=== PATIENT | male | born 1975 | race Caucasian/White ===

== ENCOUNTER 2016-12-29 04:13 | Emergency (ER) | payer MEDICAID ==
[2016-12-29] MEDS ORDERED: Sodium Chloride 0.9% 10 ML Syringe FLUSH PRN (05:09)
[2016-12-29] MEDS ORDERED: fentaNYL 100 MCG/2 ML SDV IVPUSH ONE (05:15)
[2016-12-29] MEDS ORDERED: Sodium Chloride 0.9% 1,000 ML IV ONE (05:17)
[2016-12-29] MEDS ORDERED: Sodium Chloride 0.9% 80 ML IV SCH (05:30)
[2016-12-29] MEDS ORDERED: Iopamidol 612 MG/ML 150 ML Bottle IV SCH (05:30)
--- NOTE | 2016-12-29 06:31 | EDM.PDOC ---
ED HPI GENERAL MEDICAL PROBLEM - General Chief Complaint: Abdominal Pain Stated Complaint: R ABDOMINAL PAIN Time Seen by Provider: 12/29/16 05:08 Source of Information: Reports: Patient History Limitations: Reports: No Limitations - History of Present Illness INITIAL COMMENTS - FREE TEXT/NARRATIVE: This patient comes in complaining of severe right-sided abdominal pain. 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 He said he immediately got diarrhea and when seen in the local clinic on the he said that he was having watery stool every 20 or 30 minutes. He had stopped the lactulose his last dose being on the morning of the when he cut it in half. He was not having all the abdominal pain at that time. Since then he continues to have diarrhea and says anytime he eats or drinks anything it disorder runs right through him. In the clinic he was asked to continue hydration and then follow-up in the ER if he was not being able to keep up with the liquids. Some basic labs done on the included electrolytes and renal function which was normal. He was also having a cough and a chest x-ray was done which was normal he says the abdominal pain has been going on for the last few days and is sharp stabbing and seems to come and go. These pains come on suddenly started feels like a knife it's in the right side of the abdomen right upper quadrant and then seems to radiate up a little bit into the chest on the right. He said that he takes Voltaren so that he can breathe but when he takes it it causes abdominal pain. He was not very clear about this Right Upper Abdomen Pain Score (Numeric/FACES): 7 - Related Data Allergies Allergy/AdvReac Type Severity Reaction Status Date / Time Penicillins Allergy Severe Anaphylactic Verified 06/30/15 16:58 Shock amoxicillin [Amoxicillin] Allergy Rash Verified 06/29/15 07:52 ampicillin Allergy Rash Verified 06/29/15 07:52 levofloxacin [From Levaquin] Allergy Swelling Verified 06/29/15 07:52 paroxetine HCl [From Paxil] Allergy Depression Verified 06/29/15 07:52 prednisone Allergy Confusion Verified 06/29/15 07:52 Home Meds: Home Meds Albuterol [Ventolin HFA] 2 puff INH Q4H PRN 04/16/13 [History] Diclofenac Sodium [Voltaren XR] 100 mg PO DAILY PRN 06/25/15 [History] Multivitamin [Daily Multiple Vitamin] 1 tab PO DAILY 06/25/15 [History] Omeprazole [Prilosec] 40 mg PO DAILY 06/25/15 [History] Albuterol Sulfate [Proair Hfa] 2 puff INH Q4H 12/29/16 [History] Cholecalciferol (Vitamin D3) [Vitamin D] 500 units PO DAILY 12/29/16 [History] Lactulose 15 gm PO BID 12/29/16 [History] Past Medical History HEENT History: Reports: Allergic Rhinitis, Glaucoma, Impaired Vision Cardiovascular History: Reports: Heart Murmur Respiratory History: Reports: Asthma, Bronchitis, Recurrent, Pneumonia, Recurrent Other Respiratory History: Alpha I deficiency Gastrointestinal History: Reports: GERD, Hemorrhoids, Pancreatitis Musculoskeletal History: Reports: Back Pain, Chronic, Fracture, Neck Pain, Chronic, Osteoporosis Neurological History: Reports: Migraines Psychiatric History: Reports: Depression Endocrine/Metabolic History: Reports: Obesity/BMI 30+ - Infectious Disease History Infectious Disease History: Reports: Chicken Pox - Past Surgical History GI Surgical History: Reports: Cholecystectomy, Colonoscopy, EGD, Hernia, Abdominal Dermatological Surgical History: Reports: Plastic Surgical Reconstruction/Repair Social & Family History - Tobacco Use Smoking Status *Q: Never Smoker Second Hand Smoke Exposure: No - Caffeine Use Caffeine Use: Reports: Coffee - Alcohol Use Days Per Week of Alcohol Use: 0 - Recreational Drug Use Recreational Drug Use: No ED ROS GENERAL - Review of Systems Review Of Systems: See Below Constitutional: Reports: No Symptoms HEENT: Reports: No Symptoms Respiratory: Reports: No Symptoms Cardiovascular: Reports: No Symptoms Endocrine: Reports: No Symptoms GI/Abdominal: Reports: Abdominal Pain, Diarrhea : Reports: No Symptoms Musculoskeletal: Reports: No Symptoms Skin: Reports: No Symptoms Neurological: Reports: No Symptoms ED EXAM, GI/ABD - Physical Exam Exam: See Below (6.7 and for pain but) Exam Limited By: Physical Impairment General Appearance: Alert, WD/WN, Moderate Distress (This patient seems to be having sharp stabbing pains on the right side of the abdomen that come and go.) Eyes: Right: Normal Appearance (No scleral icterus) Throat/Mouth: Normal Oropharynx Head: Atraumatic Neck: Normal Inspection Respiratory/Chest: Lungs Clear Cardiovascular: Regular Rate, Rhythm GI/Abdominal Exam: Soft, Other (Hypoactive bowel sounds. There is generalized mild tenderness but the right side of the abdomen goes from moderate to severe tenderness. I was not able to palpate a liver margin) Back Exam: Normal Inspection Extremities: Normal Inspection Neurological: Alert, Oriented Psychiatric: Normal Affect Skin Exam: Warm, Dry Course - Vital Signs Last Recorded V/S: Last Vital Signs Temp 37 C 12/29/16 06:44 Pulse 93 12/29/16 06:44 Resp 16 12/29/16 06:44 BP 146/86 H 12/29/16 06:44 Pulse Ox 98 12/29/16 06:44 - Orders/Labs/Meds Orders: Active Orders 24 hr Category Date Time Status Abdomen Pelvis w Cont [CT] Stat Exams 12/29/16 05:09 Taken Iopamidol [Isovue-300 (61%)] Med 12/29/16 05:30 Active 150 ml IV . DIRECTED Sodium Chloride 0.9% [Normal Saline] 80 ml Med 12/29/16 05:30 Active IV ASDIRECTED Sodium Chloride 0.9% [Saline Flush] Med 12/29/16 05:09 Active 10 ml FLUSH ASDIRECTED PRN Saline Lock Insert [OM.PC] Urgent Oth 12/29/16 05:09 Ordered Medication Orders Sodium Chloride (Normal Saline) 80 mls @ 3 mls/sec IV ASDIRECTED ANDREE Last Admin: 12/29/16 05:53 Dose: 3 mls/sec Iopamidol (Isovue-300 (61%)) 150 ml IV . DIRECTED ANDREE Last Admin: 12/29/16 05:53 Dose: 150 ml Sodium Chloride (Saline Flush) 10 ml FLUSH ASDIRECTED PRN PRN Reason: Keep Vein Open Last Admin: 12/29/16 05:53 Dose: 10 ml Labs: Laboratory Tests 12/29/16 12/29/16 12/29/16 Range/Units 05:24 05:24 05:24 WBC 9.5 (4.5-11.0) K/uL RBC 4.78 (4.30-5.90) M/uL Hgb 14.4 (12.0-15.0) g/dL Hct 41.9 (40.0-54.0) % MCV 88 (80-98) fL MCH 30 (27-31) pg MCHC 34 (32-36) % Plt Count 260 (150-400) K/uL Neut % (Auto) 58 (36-66) % Lymph % (Auto) 24 (24-44) % Phelps % (Auto) 13 H (2-6) % Eos % (Auto) 4 (2-4) % Baso % (Auto) 1 (0-1) % Sodium 140 (140-148) mmol/L Potassium 3.6 (3.6-5.2) mmol/L Chloride 102 (100-108) mmol/L Carbon Dioxide 28 (21-32) mmol/L Anion Gap 10.1 (5.0-14.0) mmol/L BUN 13 (7-18) mg/dL Creatinine 0.8 (0.8-1.3) mg/dL Est Cr Clr Drug Dosing 130.73 mL/min Estimated GFR (MDRD) > 60 (>60) Glucose 119 H (74-106) mg/dL Calcium 8.4 L (8.5-10.1) mg/dL Total Bilirubin 0.4 (0.2-1.0) mg/dL AST 48 H (15-37) U/L ALT 117 H (12-78) U/L Alkaline Phosphatase 77 (46-116) U/L Total Protein 7.4 (6.4-8.2) g/dL Albumin 4.1 (3.4-5.0) g/dL Globulin 3.3 (2.3-3.5) g/dL Albumin/Globulin Ratio 1.2 (1.2-2.2) Amylase 54 (25-115) U/L Lipase 84 (73-393) U/L Meds: Medications Generic Name Dose Route Start Last Admin Trade Name Freq PRN Reason Stop Dose Admin Sodium Chloride 80 mls @ 3 mls/sec 12/29/16 05:30 12/29/16 05:53 Normal Saline IV 3 mls/sec ASDIRECTED ANDREE Administration Iopamidol 150 ml 12/29/16 05:30 12/29/16 05:53 Isovue-300 (61%) IV 150 ml . DIRECTED ANDREE Administration Sodium Chloride 10 ml 12/29/16 05:09 12/29/16 05:53 Saline Flush FLUSH 10 ml ASDIRECTED PRN Administration Keep Vein Open Discontinued Medications Generic Name Dose Route Start Last Admin Trade Name Tiffanie PRN Reason Stop Dose Admin Fentanyl 50 mcg 12/29/16 05:15 12/29/16 05:40 Sublimaze IVPUSH 12/29/16 05:16 50 mcg ONETIME ONE Administration Sodium Chloride 1,000 mls @ 999 mls/hr 12/29/16 05:17 12/29/16 05:30 Normal Saline IV 12/29/16 06:17 999 mls/hr .BOLUS ONE Administration - Radiology Interpretation Free Text/Narrative:: Abdominal CT appears to show a short segment of bowel wall thickening in the terminal ileum however this believed to be pseudo-thickening due to nondistention since there was no. Interim inflammation. There were a few reactive appearing lymph nodes in the right lower quadrant. I reviewed the CT myself. The radiologist did not mention that he has a large amount of stool in the ascending and transverse colon. Recall of this patient is having diarrhea - Re-Assessments/Exams Free Text/Narrative Re-Assessment/Exam: 12/29/16 06:34 The patient received fentanyl 50 g IV. He said that only partially relieved his pain did not want anymore. He has not had any nausea. Labs have been reviewed and show just some mild elevation in transaminases. I reviewed the CT and I do see a lot of stool in the ascending and transverse colon despite his history of diarrhea. Radiology report is pending Departure - Departure Time of Disposition: 07:16 Disposition: Home, Self-Care 01 Condition: Fair Clinical Impression: Steatohepatitis, non-alcoholic, Abdominal pain, Diarrhea - Discharge Information Referrals: Jae Rosales MD [Primary Care Provider] - Forms: ED Department Discharge Additional Instructions: Your blood work is all normal. The CT report mentioned possibly some inflammation to the end of the small intestine but that's probably just because the intestine wasn't distended so most likely it's actually normal. I reviewed the CT myself and see that you have a lot of stool in the colon on the right at the beginning of the colon and this extends all the way up across her upper abdomen. The part of the colon on the left side which is towards the anal end appears to be mostly empty. Most likely the pain is caused by contractions of the colon as it tries to force the hard stool towards the rectum. You need to continue taking the lactulose even if it's a half dose. The lactulose needs to cause diarrhea in order to work to rid your blood of the poisons that the liver would normally remove. Just be sure to drink plenty of water to replace the water lost in the diarrhea fluid. Feel free to return to the ER at any time if needed - My Orders Last 24 Hours: My Active Orders 12/29/16 05:09 Abdomen Pelvis w Cont [CT] Stat Sodium Chloride 0.9% [Saline Flush] 10 ml FLUSH ASDIRECTED PRN Saline Lock Insert [OM.PC] Urgent 12/29/16 05:30 Iopamidol [Isovue-300 (61%)] 150 ml IV . DIRECTED Sodium Chloride 0.9% [Normal Saline] 80 ml IV ASDIRECTED - Assessment/Plan Last 24 Hours: My Active Orders 12/29/16 05:09 Abdomen Pelvis w Cont [CT] Stat Sodium Chloride 0.9% [Saline Flush] 10 ml FLUSH ASDIRECTED PRN Saline Lock Insert [OM.PC] Urgent 12/29/16 05:30 Iopamidol [Isovue-300 (61%)] 150 ml IV . DIRECTED Sodium Chloride 0.9% [Normal Saline] 80 ml IV ASDIRECTED
[2016-12-29 06:45] VITALS: BP 146/86
== END 2016-12-29 07:48 | disposition home or self-care (01) ==
LOC: JP.ED 04:13
DX: K75.81 Nonalcoholic steatohepatitis (NASH) (principal); R19.7 Diarrhea, unspecified; K21.9 Gastro-esophageal reflux disease without esophagitis; J45.909 Unspecified asthma, uncomplicated; E66.9 Obesity, unspecified; Z68.30 Body mass index [BMI] 30.0-30.9, adult; Z88.1 Allergy status to other antibiotic agents; Z88.0 Allergy status to penicillin; Z88.8 Allergy status to other drugs, medicaments and biological substances; Z79.899 Other long term (current) drug therapy; Z90.49 Acquired absence of other specified parts of digestive tract; Z87.01 Personal history of pneumonia (recurrent)
CPT/HCPCS: 36415; 74177; 80053; 82150; 83690; 85025; 96361; 96374; 99284; J3010; J7030; J7040; J7050

== ENCOUNTER 2018-06-07 07:15 | Day surgery (SDC) | payer MEDICAID ==
[~2018-06-07 07:15] MED LIST: Bupivacaine 0.5%/EPINEPHrine 1:200,000 50 ML MDV ONE; Lidocaine 2% Jelly 10 ML Urojet ONE
[2018-06-07] MEDS ORDERED: fentaNYL 250 MCG/5 ML SDV ONE (07:55)
[2018-06-07] MEDS ORDERED: Propofol 200 MG/20 ML SDV ONE (07:56)
[2018-06-07] MEDS ORDERED: Midazolam 1 MG/ML 2 ML SDV ONE (07:56)
[2018-06-07] MEDS ORDERED: Albuterol/Ipratropium 3.0-0.5 MG/3 ML Neb Soln NEB ONE (08:15)
[2018-06-07] MEDS ORDERED: Dextrose 5%-Lactated Ringers 1,000 ML IV SCH (08:15)
[2018-06-07 10:45] VITALS: BP 133/78
--- NOTE | 2018-06-13 22:22 | OR ---
DATE OF PROCEDURE: 06/07/2018 PREOPERATIVE DIAGNOSIS: Rectal bleeding. POSTOPERATIVE DIAGNOSIS: Rectal bleeding secondary to internal hemorrhoids. PROCEDURE PERFORMED: Diagnostic anoscopy with hemorrhoid banding x2 (10391). ANESTHESIA: IV sedation. INDICATIONS FOR PROCEDURE: This is a 43-year-old presenting with some bleeding hemorrhoids by history. Plan was to proceed with an anoscopic examination with some IV sedation along with hemorrhoid banding as indicated. Potential risks of the procedure including bleeding, postoperative pain, possibility that he may need additional treatment over time for the bleeding was reviewed, and the patient wishes to proceed. DETAILS OF PROCEDURE: The patient was taken to the operating room and placed in the left lateral decubitus position. The initial digital rectal exam was performed and was unremarkable. The anoscope was then placed. There were 2 prominent hemorrhoids; one of these did have some blood on its surface. One was located in the right lateral area, and then one was more posterior and slightly to the left of the midline. It did have some blood on its surface. Both of these were fairly engorged and were banded with hemorrhoids located in position above the dentate line. No further pathology was seen and the procedure concluded. CONDITION: The patient was taken to the recovery room in satisfactory condition. Matt Padgett MD /[id number]
== END 2018-06-07 11:00 | disposition home or self-care (01) ==
LOC: JP.SDS 07:15
PROVIDERS: ATTEND Surgery
DX: K64.8 Other hemorrhoids (principal); K74.60 Unspecified cirrhosis of liver; F32.9 Major depressive disorder, single episode, unspecified; F17.200 Nicotine dependence, unspecified, uncomplicated
CPT/HCPCS: 46221; J2250; J2704; J3010; J7042; J3490; J7620-GY

== ENCOUNTER 2018-06-22 19:52 | Emergency (ER) | payer MEDICAID ==
[2018-06-22 20:24] VITALS: BP 159/88
--- NOTE | 2018-06-22 20:55 | EDM.PDOC ---
ED HPI GENERAL MEDICAL PROBLEM - General Chief Complaint: ENT Problem Stated Complaint: LEFT EAR PAIN Time Seen by Provider: 06/22/18 20:47 Source of Information: Reports: Patient History Limitations: Reports: No Limitations - History of Present Illness INITIAL COMMENTS - FREE TEXT/NARRATIVE: pt had some muffled hearing and now he has pain over the tmj joint. He also thought he heard a high pitched sound. That ia better. He states this started suddenly. Onset: Today, Sudden Duration: Hour(s): Location: Reports: Face Associated Symptoms: Reports: No Other Symptoms - Related Data Allergies Allergy/AdvReac Type Severity Reaction Status Date / Time Penicillins Allergy Severe Anaphylactic Verified 06/22/18 20:17 Shock amoxicillin [Amoxicillin] Allergy Rash Verified 06/22/18 20:17 ampicillin Allergy Rash Verified 06/22/18 20:17 coconut Allergy Facial Verified 06/22/18 20:17 Swelling lactose Allergy Other Verified 06/22/18 20:17 levofloxacin [From Levaquin] Allergy Swelling Verified 06/22/18 20:17 paroxetine HCl [From Paxil] Allergy Depression Verified 06/22/18 20:17 prednisone Allergy Confusion Verified 06/22/18 20:17 sucrose Allergy Other Verified 06/22/18 20:17 Home Meds: Home Meds Albuterol Sulfate [Proair Hfa] 2 puff INH Q4H 12/29/16 [History] Cholecalciferol (Vitamin D3) [Vitamin D3] 1 tab PO TID 03/13/18 [History] Dextroamphetamine/Amphetamine [Dextroamp-Amphetamine 5 mg Tab] 1 tab PO DAILY [History] LORazepam 1 mg PO ASDIRECTED PRN 03/13/18 [History] Albuterol [Ventolin HFA] 2 puff INH Q4HR PRN 06/05/18 [History] #92/Iron/FA #8/Ps-Dha [Enbrace Hr Softgel] 1 tab PO DAILY 06/05/18 [ History] Past Medical History HEENT History: Reports: Allergic Rhinitis, Glaucoma, Impaired Vision Cardiovascular History: Reports: Heart Murmur Respiratory History: Reports: Asthma, Bronchitis, Recurrent, Pneumonia, Recurrent Other Respiratory History: Alpha I deficiency Gastrointestinal History: Reports: GERD, Hemorrhoids, Pancreatitis Musculoskeletal History: Reports: Back Pain, Chronic, Fracture, Neck Pain, Chronic, Osteoporosis Neurological History: Reports: Migraines Psychiatric History: Reports: ADHD, Anxiety, Depression, Psych Hospitalization(s ), Suicidal Ideation Endocrine/Metabolic History: Reports: Obesity/BMI 30+ - Infectious Disease History Infectious Disease History: Reports: Chicken Pox - Past Surgical History GI Surgical History: Reports: Cholecystectomy, Colonoscopy, EGD, Hernia, Abdominal Dermatological Surgical History: Reports: Plastic Surgical Reconstruction/Repair , Other (See Below) Social & Family History - Tobacco Use Smoking Status *Q: Never Smoker - Caffeine Use Caffeine Use: Reports: Coffee ED ROS ENT - Review of Systems Review Of Systems: See Below Constitutional: Reports: No Symptoms HEENT: Reports: Other (pain in the left ear and muffled hearing. He is very tender over the tmj area. ) Respiratory: Reports: No Symptoms Cardiovascular: Reports: No Symptoms Endocrine: Reports: No Symptoms GI/Abdominal: Reports: No Symptoms : Reports: No Symptoms ED EXAM, ENT - Physical Exam Exam: See Below Text/Narrative:: pt arrived with a muffed hearing in the left ear. He had pain in front of the ear. He did have a high pitched sound in the ear. He now feels the hearing is normal. Exam Limited By: No Limitations General Appearance: Alert, Anxious, Mild Distress Ears: Other ( both drums do not look red and no visable fluid. He is very tender over the tmj joint on the left but not the rt. ) Nose: Normal Inspection Mouth/Throat: Normal Inspection Head: Atraumatic Neck: Normal Inspection Respiratory/Chest: No Respiratory Distress Cardiovascular: Regular Rate, Rhythm Course - Vital Signs Last Recorded V/S: Last Vital Signs Temp 36.9 C 06/22/18 20:22 Pulse 91 06/22/18 20:22 Resp 14 06/22/18 20:22 BP 159/88 H 06/22/18 20:22 Pulse Ox 98 06/22/18 20:22 Departure - Departure Time of Disposition: 20:51 Disposition: Home, Self-Care 01 Condition: Fair Clinical Impression: TMJ arthralgia - Discharge Information Referrals: Jae Rosales MD [Primary Care Provider] - Forms: ED Department Discharge Care Plan Goals: moist warm packs to the area, use voltaren 50 mg bid for the next 5-6 days. Take with food. Pt has the voltaren at home.
== END 2018-06-22 21:14 | disposition home or self-care (01) ==
LOC: JP.ED 19:52
DX: M26.622 Arthralgia of left temporomandibular joint (principal); K21.9 Gastro-esophageal reflux disease without esophagitis; F41.9 Anxiety disorder, unspecified; F32.9 Major depressive disorder, single episode, unspecified; Z79.899 Other long term (current) drug therapy; Z88.0 Allergy status to penicillin; Z88.1 Allergy status to other antibiotic agents; Z91.018 Allergy to other foods
CPT/HCPCS: 99282

== ENCOUNTER 2019-06-26 11:07 | Emergency (ER) | payer MEDICAID, OTHER ==
[2019-06-26] MEDS ORDERED: Albuterol/Ipratropium 3.0-0.5 MG/3 ML Neb Soln NEB ONE (11:39)
--- NOTE | 2019-06-26 11:40 | EDM.PDOC ---
ED HPI GENERAL MEDICAL PROBLEM - General Chief Complaint: Respiratory Problem Stated Complaint: SOB, COUGH, FEVER Time Seen by Provider: 06/26/19 11:40 Source of Information: Reports: Patient History Limitations: Reports: No Limitations - History of Present Illness INITIAL COMMENTS - FREE TEXT/NARRATIVE: pt has a history of increased sob and a very persistent cough. He has a history of alpha 1 antitripsin def. Onset: Gradual, Other ( Pt has had a problm with a cough for about 3 weeks. He has recently been spiking a fever. ) Duration: Hour(s): Location: Reports: Chest Associated Symptoms: Reports: Cough, Diaphoresis, Fever/Chills, Shortness of Breath, Weakness - Related Data Allergies Allergy/AdvReac Type Severity Reaction Status Date / Time Penicillins Allergy Severe Anaphylactic Verified 06/22/18 20:17 Shock amoxicillin [Amoxicillin] Allergy Rash Verified 06/22/18 20:17 ampicillin Allergy Rash Verified 06/22/18 20:17 coconut Allergy Facial Verified 06/22/18 20:17 Swelling lactose Allergy Other Verified 06/22/18 20:17 levofloxacin [From Levaquin] Allergy Swelling Verified 06/22/18 20:17 paroxetine HCl [From Paxil] Allergy Depression Verified 06/22/18 20:17 prednisone Allergy Confusion Verified 06/22/18 20:17 sucrose Allergy Other Verified 06/22/18 20:17 Home Meds: Home Meds Albuterol Sulfate [Proair Hfa] 2 puff INH Q4H 12/29/16 [History] Cholecalciferol (Vitamin D3) [Vitamin D3] 1 tab PO TID 03/13/18 [History] Dextroamphetamine/Amphetamine [Dextroamp-Amphetamine 5 mg Tab] 1 tab PO DAILY [History] LORazepam 1 mg PO ASDIRECTED PRN 03/13/18 [History] Albuterol [Ventolin HFA] 2 puff INH Q4HR PRN 06/05/18 [History] #92/Iron/FA #8/Ps-Dha [Enbrace Hr Softgel] 1 tab PO DAILY 06/05/18 [ History] Past Medical History HEENT History: Reports: Allergic Rhinitis, Glaucoma, Impaired Vision Cardiovascular History: Reports: Heart Murmur Respiratory History: Reports: Asthma, Bronchitis, Recurrent, Pneumonia, Recurrent Other Respiratory History: Alpha I deficiency Gastrointestinal History: Reports: GERD, Hemorrhoids, Pancreatitis Musculoskeletal History: Reports: Back Pain, Chronic, Fracture, Neck Pain, Chronic, Osteoporosis Neurological History: Reports: Migraines Psychiatric History: Reports: ADHD, Anxiety, Depression, Psych Hospitalization(s ), Suicidal Ideation Endocrine/Metabolic History: Reports: Obesity/BMI 30+ - Infectious Disease History Infectious Disease History: Reports: Chicken Pox - Past Surgical History GI Surgical History: Reports: Cholecystectomy, Colonoscopy, EGD, Hernia, Abdominal Dermatological Surgical History: Reports: Plastic Surgical Reconstruction/Repair , Other (See Below) Social & Family History - Caffeine Use Caffeine Use: Reports: Coffee ED ROS GENERAL - Review of Systems Review Of Systems: See Below Constitutional: Reports: Fever, Chills, Malaise, Weakness HEENT: Reports: No Symptoms Respiratory: Reports: Shortness of Breath, Cough Cardiovascular: Reports: No Symptoms Endocrine: Reports: No Symptoms GI/Abdominal: Reports: No Symptoms : Reports: No Symptoms Musculoskeletal: Reports: No Symptoms Skin: Reports: No Symptoms Neurological: Reports: No Symptoms ED EXAM, GENERAL - Physical Exam Exam: See Below Free Text/Narrative:: pt arrived stating that he is not resting at nite because he is coughing continuously . He has good o2 sats. He did have a febrile illness about 3 weeks ago and now he is running a fever off and on. He has a history of asthma. He states that steroids make his bs run very hiogh and he does not like to take them. He has a history of alpha 1 antitripsen def. Exam Limited By: No Limitations General Appearance: Alert, Anxious, Mild Distress Ears: Normal TMs Nose: Normal Inspection Throat/Mouth: Normal Inspection Head: Atraumatic Neck: Normal Inspection Respiratory/Chest: Decreased Breath Sounds, Wheezing Cardiovascular: Regular Rate, Rhythm GI/Abdominal: Soft, Non-Tender (Male) Exam: Deferred Rectal (Males) Exam: Deferred Back Exam: Normal Inspection Extremities: Normal Inspection Neurological: Alert, Oriented, Normal Cognition Psychiatric: Normal Affect Course - Vital Signs Last Recorded V/S: Last Vital Signs Temp 36.8 C 06/26/19 11:26 Pulse 75 06/26/19 11:26 Resp 18 06/26/19 11:26 BP 141/103 H 06/26/19 11:26 Pulse Ox 97 06/26/19 11:26 - Orders/Labs/Meds Orders: Active Orders 24 hr Category Date Time Status RT Aerosol Therapy [RC] ASDIRECTED Care 06/26/19 11:40 Active RT Aerosol Therapy [RC] ASDIRECTED Care 06/26/19 13:16 Ordered INFLUENZA A+B AG SCREEN [RM] Stat Lab 06/26/19 12:33 Ordered RESPIRATORY SYNCYTIAL VIRUS AG [RM] Stat Lab 06/26/19 12:33 Ordered UA W/MICROSCOPIC [URIN] Urgent Lab 06/26/19 11:30 Ordered Albuterol [Proventil Neb Soln] Med 06/26/19 13:16 Once 2.5 mg NEB ONETIME ONE Isolation [COMM] Routine Oth 06/26/19 12:07 Ordered Isolation [COMM] Routine Oth 06/26/19 12:08 Ordered Medication Orders Albuterol (Proventil Neb Soln) 2.5 mg NEB ONETIME ONE Stop: 06/26/19 13:17 Labs: Laboratory Tests 06/26/19 06/26/19 06/26/19 Range/Units 11:44 11:44 12:01 WBC 9.9 (4.5-11.0) K/uL RBC 5.43 (4.30-5.90) M/uL Hgb 16.3 H (12.0-15.0) g/dL Hct 48.3 (40.0-54.0) % MCV 89 (80-98) fL MCH 30 (27-31) pg MCHC 34 (32-36) % Plt Count 316 (150-400) K/uL Neut % (Auto) 51 (36-66) % Lymph % (Auto) 28 (24-44) % [place] % (Auto) 14 H (2-6) % Eos % (Auto) 6 H (2-4) % Baso % (Auto) 1 (0-1) % Sodium 140 (140-148) mmol/L Potassium 4.1 (3.6-5.2) mmol/L Chloride 104 (100-108) mmol/L Carbon Dioxide 30 (21-32) mmol/L Anion Gap 6.4 (5.0-14.0) mmol/L BUN 11 (7-18) mg/dL Creatinine 0.9 (0.8-1.3) mg/dL Est Cr Clr Drug Dosing TNP Estimated GFR (MDRD) > 60 (>60) Glucose 140 H (74-106) mg/dL Calcium 9.1 (8.5-10.1) mg/dL Total Bilirubin 0.4 (0.2-1.0) mg/dL AST 58 H (15-37) U/L ALT 140 H (12-78) U/L Alkaline Phosphatase 79 (46-116) U/L C-Reactive Protein < 0.05 (0.0-0.3) mg/dL Total Protein 7.7 (6.4-8.2) g/dL Albumin 4.1 (3.4-5.0) g/dL Globulin 3.6 H (2.3-3.5) g/dL Albumin/Globulin Ratio 1.1 L (1.2-2.2) Meds: Medications Generic Name Dose Route Start Last Admin Trade Name Freq PRN Reason Stop Dose Admin Albuterol 2.5 mg 06/26/19 13:16 Proventil Neb Soln NEB 06/26/19 13:17 ONETIME ONE Discontinued Medications Generic Name Dose Route Start Last Admin Trade Name Freq PRN Reason Stop Dose Admin Albuterol/Ipratropium 3 ml 06/26/19 11:39 06/26/19 11:59 Duoneb 3.0-0.5 Mg/3 Ml NEB 06/26/19 11:40 3 ml ONETIME ONE Administration Triamcinolone Acetonide 60 mg 06/26/19 12:16 06/26/19 12:41 Kenalog-40 IM 06/26/19 12:17 Not Given ASDIRECTED ONE - Re-Assessments/Exams Free Text/Narrative Re-Assessment/Exam: 06/26/19 13:24 pt was given a duoneb which was very effective in getting the cough to stop. He was given a second albuterol neb. He has a normal wbc without a lymphcytosis. He does have mildly elevated liver enzymes. pt has a neg influ a and b and rsv. His chest xray does not reveal a infiltrate. Pt has good o2 sats. 06/26/19 13:26 Departure - Departure Time of Disposition: 13:28 Disposition: Home, Self-Care 01 Condition: Fair Clinical Impression: Bronchitis, Bronchospasm - Discharge Information Referrals: Jae Rosales MD [Primary Care Provider] - Forms: ED Department Discharge Care Plan Goals: push fluids, increase nebulizer treatments to every 6 hours. , push fluids, cool mist humidifier, zithromax 500mg now and then 250 mg daily for 6 days, robitussin ac 1-2 tsp q6h prn for the cough. rtc if problems. Sepsis Event Note - Focused Exam Vital Signs: Vital Signs Temp Pulse Resp BP Pulse Ox 06/26/19 11:26 36.8 C 75 18 141/103 H 97 Date Exam was Performed: 06/26/19 Time Exam was Performed: 13:17 - My Orders Last 24 Hours: My Active Orders 06/26/19 11:30 UA W/MICROSCOPIC [URIN] Urgent 06/26/19 11:40 RT Aerosol Therapy [RC] ASDIRECTED 06/26/19 12:07 Isolation [COMM] Routine 06/26/19 12:08 Isolation [COMM] Routine 06/26/19 12:33 INFLUENZA A+B AG SCREEN [RM] Stat RESPIRATORY SYNCYTIAL VIRUS AG [RM] Stat 06/26/19 13:16 RT Aerosol Therapy [RC] ASDIRECTED Albuterol [Proventil Neb Soln] 2.5 mg NEB ONETIME ONE - Assessment/Plan Last 24 Hours: My Active Orders 06/26/19 11:30 UA W/MICROSCOPIC [URIN] Urgent 06/26/19 11:40 RT Aerosol Therapy [RC] ASDIRECTED 06/26/19 12:07 Isolation [COMM] Routine 06/26/19 12:08 Isolation [COMM] Routine 06/26/19 12:33 INFLUENZA A+B AG SCREEN [RM] Stat RESPIRATORY SYNCYTIAL VIRUS AG [RM] Stat 06/26/19 13:16 RT Aerosol Therapy [RC] ASDIRECTED Albuterol [Proventil Neb Soln] 2.5 mg NEB ONETIME ONE
[2019-06-26 12:11] VITALS: BP 141/103; PULSE 75
[2019-06-26] MEDS ORDERED: Triamcinolone Acetonide 40 MG/ML 1 ML MDV IM ONE (12:16)
--- NOTE | 2019-06-26 12:35 | CR ---
CHEST: 2 view CLINICAL HISTORY:SOB, cough COMPARISON:2009 FINDINGS: There is some minimal patchy density in the lingula. Heart size, pulmonary vascularity and hilar structures are normal. No effusions are seen Impression: Minimal patchy lingular density. Small pneumonia is not excluded.
[2019-06-26] MEDS ORDERED: Albuterol 0.083% 2.5 MG/3 ML Neb Soln NEB ONE (13:16)
== END 2019-06-26 13:52 | disposition home or self-care (01) ==
LOC: JP.ED 11:07
DX: J40 Bronchitis, not specified as acute or chronic (principal); Z88.8 Allergy status to other drugs, medicaments and biological substances; E66.9 Obesity, unspecified; Z68.33 Body mass index [BMI] 33.0-33.9, adult; Z88.0 Allergy status to penicillin; Z88.1 Allergy status to other antibiotic agents; Z91.018 Allergy to other foods
CPT/HCPCS: 36415; 71046; 71046-26; 80053; 81001; 85025; 86140; 87804; 87804-59; 87807-QW; 94640; 99285-25; J7620-GY

== ENCOUNTER 2022-03-04 16:31 | Emergency (ER) | payer MEDICAID ==
[2022-03-04 16:45] VITALS: BP 161/91; PULSE 106
[2022-03-04 17:44] LABS: ESTIMATED GFR 111 mL/min (>60); TROPONIN I HIGH SENSITIVITY 4.5 pg/mL (<=60.3)
== END 2022-03-04 18:31 | disposition home or self-care (01) ==
LOC: JP.ED 16:31
DX: I49.3 Ventricular premature depolarization (principal); J45.909 Unspecified asthma, uncomplicated; E66.9 Obesity, unspecified; Z68.31 Body mass index [BMI] 31.0-31.9, adult; Z88.0 Allergy status to penicillin; Z91.018 Allergy to other foods; Z91.011 Allergy to milk products; Z88.1 Allergy status to other antibiotic agents; Z79.899 Other long term (current) drug therapy; Z79.84 Long term (current) use of oral hypoglycemic drugs; Z90.49 Acquired absence of other specified parts of digestive tract
CPT/HCPCS: 36415; 80053; 83735; 84100; 84484; 85025; 99285

== ENCOUNTER 2024-06-05 15:49 | Observation (INO) | payer MEDICAID, OTHER ==
[2024-06-05 16:19] LABS: BASOPHILS ABSOLUTE AUTO 0.04 K/uL (0.00-0.10); BASOPHILS PERCENT AUTO 0.2 % (0.1-1.3); EOSINOPHILS ABSOLUTE AUTO 0.44 K/uL (0.00-0.40); EOSINOPHILS PERCENT AUTO 2.7 % (0.0-5.4); HEMATOCRIT 43.7 % (38.4-49.7); HEMOGLOBIN 15.7 g/dL (12.9-16.9); IMMATURE GRAN ABSOLUTE AUTO 0.05 K/uL (0.00-0.23); IMMATURE GRAN PERCENT AUTO 0.3 % (0.0-0.7); LYMPHOCYTES ABSOLUTE AUTO 3.06 K/uL (0.8-3.3); LYMPHOCYTES PERCENT AUTO 18.4 % (11.4-47.7); MEAN CORPUSCULAR HEMOGLOBIN 32.4 pg (31.6-35.5); MEAN CORPUSCULAR HGB CONC 35.9 g/dL (31.6-35.5); MEAN CORPUSCULAR VOLUME 90.3 fL (81.4-99.0); MONOCYTES PERCENT AUTO 10.2 % (3.3-12.6); NEUTROPHILS ABSOLUTE AUTO 11.31 K/uL (1.0-7.6); NEUTROPHILS PERCENT AUTO 68.2 % (40.0-78.1); PLATELET COUNT,PLT 260 K/uL (130-375); RED BLOOD CELL COUNT 4.84 M/uL (4.14-5.76); WHITE BLOOD CELL COUNT,WBC 16.6 K/uL (3.2-11.0)
[2024-06-05 16:44] LABS: LACTIC ACID 0.6 mmol/L (0.4-2.0)
[2024-06-05] MEDS: Sodium Chloride 0.9% 80 ML IV SCH (17:05)
[2024-06-05] MEDS: Iopamidol 612 MG/ML 100 ML Bottle IV SCH (17:05)
[2024-06-05 17:07] LABS: A/G RATIO 1.3 (1.2-2.2); ALANINE AMINOTRANSFERASE,ALT 116 U/L (12-78); ALBUMIN 4.5 g/dL (3.4-5.0); ALKALINE PHOSPHATASE 78 U/L (46-116); ASPARTATE AMNIOTRANSFERASE,AST 50 U/L (15-37); BILIRUBIN TOTAL 0.7 mg/dL (0.2-1.0); BLOOD UREA NITROGEN,BUN 17 mg/dL (7-18); C-REACTIVE PROTEIN 0.51 mg/dL (<0.50); CALCIUM 9.2 mg/dL (8.5-10.1); CARBON DIOXIDE,CO2 26 mmol/L (21-32); CHLORIDE,CL 102 mmol/L (100-108); CREATININE 0.8 mg/dL (0.8-1.3); EST CRCL DRUG DOSING (CG) 120.27 mL/min; ESTIMATED GFR 109 mL/min (>60); GLUCOSE RANDOM 101 mg/dL (74-106); POTASSIUM,K 3.7 mmol/L (3.6-5.2); PROTEIN TOTAL,TP 7.9 g/dL (6.4-8.2); SODIUM,NA 137 mmol/L (140-148)
[2024-06-05 17:08] LABS: ANION GAP 12.7 mmol/L (5.0-14.0)
[2024-06-05] MEDS: Sodium Chloride 0.9% 1,000 ML IV STA (17:30)
[2024-06-05] MEDS: Ertapenem 1 GM in Sodium Chloride 0.9% 50 ML IV SCH (18:11)
[2024-06-05 18:52] LABS: APPEARANCE,URINE CLEAR (CLEAR); BILIRUBIN,URINE NEGATIVE (NEGATIVE); COLOR,URINE YELLOW (YELLOW); GLUCOSE,URINE NEGATIVE (NEGATIVE); KETONES,URINE TRACE mg/dL (NEGATIVE); LEUKOCYTE ESTERASE,URINE NEGATIVE (NEGATIVE); NITRITE,URINE NEGATIVE (NEGATIVE); OCCULT BLOOD,URINE NEGATIVE (NEGATIVE); PH,URINE 6.5 (5.0-8.0); PROTEIN,URINE NEGATIVE (NEGATIVE); UROBILINOGEN,URINE 0.2 EU/dL (0.2-1.0)
[2024-06-05] MEDS ORDERED: LORazepam 2 MG/ML SDV IVPUSH PRN (19:49)
[2024-06-05] MEDS ORDERED: Ondansetron 4 MG Tab.DIS PO PRN (19:49)
[2024-06-05] MEDS ORDERED: HYDROmorphone 1 MG/ML Syringe IVPUSH PRN (19:49)
[2024-06-05] MEDS ORDERED: Sennosides/Docusate Sodium 50-8.6 MG Tab PO PRN (19:49)
[2024-06-05] MEDS ORDERED: Magnesium Hydroxide 400 MG/5 ML Susp 30 ML Cup PO PRN (19:49)
[2024-06-05] MEDS ORDERED: Melatonin 3 MG Tab PO PRN (19:49)
[2024-06-05] MEDS ORDERED: Albuterol 0.083% 2.5 MG/3 ML Neb Soln NEB PRN (19:49)
[2024-06-05] MEDS ORDERED: Ondansetron 4 MG/2 ML SDV IV PRN (19:49)
[2024-06-05] MEDS ORDERED: HYDROmorphone 0.5 MG/0.5 ML Syringe IVPUSH PRN (19:58)
[2024-06-05] MEDS: Sodium Chloride 0.9% 1,000 ML IV SCH (23:14)
[2024-06-06 05:59] LABS: HEMATOCRIT 41.1 % (38.4-49.7); HEMOGLOBIN 14.6 g/dL (12.9-16.9); MEAN CORPUSCULAR HEMOGLOBIN 32.5 pg (31.6-35.5); MEAN CORPUSCULAR HGB CONC 35.5 g/dL (31.6-35.5); MEAN CORPUSCULAR VOLUME 91.5 fL (81.4-99.0); RED BLOOD CELL COUNT 4.49 M/uL (4.14-5.76); WHITE BLOOD CELL COUNT,WBC 8.3 K/uL (3.2-11.0)
[2024-06-06 06:12] LABS: CALCIUM 8.4 mg/dL (8.5-10.1); CREATININE 0.7 mg/dL (0.8-1.3); EST CRCL DRUG DOSING (CG) 137.45 mL/min; POTASSIUM,K 3.9 mmol/L (3.6-5.2)
[2024-06-06 06:20] LABS: ANION GAP 9.9 mmol/L (5.0-14.0)
[2024-06-06] MEDS ORDERED: Propofol 200 MG/20 ML SDV ONE (07:13)
[2024-06-06] MEDS ORDERED: Glycopyrrolate 0.2 MG/ML 5 ML MDV ONE (07:13)
[2024-06-06] MEDS ORDERED: fentaNYL 250 MCG/5 ML SDV ONE ×2 (07:13→11:45)
[2024-06-06] MEDS ORDERED: Rocuronium 50 MG/5 ML Vial ONE (07:13)
[2024-06-06] MEDS ORDERED: Succinylcholine 200 MG/10 ML MDV ONE (07:13)
[2024-06-06] MEDS ORDERED: Ondansetron 4 MG/2 ML SDV ONE (07:13)
[2024-06-06] MEDS ORDERED: Dexamethasone 4 MG/ML SDV ONE (07:13)
[2024-06-06] MEDS ORDERED: Neostigmine Methylsulfate 10 MG/10 ML MDV ONE (07:13)
[2024-06-06] MEDS ORDERED: Docusate Sodium 100 MG Cap PO PRN (08:35)
[2024-06-06] MEDS ORDERED: Benzocaine/Cetylpyridinium/Menthol Lozenge MUCMEM PRN (08:35)
[2024-06-06] MEDS ORDERED: Acetaminophen/HYDROcodone 325-5 MG Tab PO PRN (08:35)
[2024-06-06] MEDS ORDERED: Zolpidem 5 MG Tab PO PRN (08:35)
[2024-06-06] MEDS ORDERED: hydrOXYzine HCL 100 MG/2 ML SDV IM PRN (08:35)
[2024-06-06] MEDS: Ropivacaine 44 ML, dexAMETHasone 8 MG, EPINEPHrine 0.4 MG, Sodium Chloride 0.9% 33.6 ML NERVRT SCH (11:42)
[2024-06-06] MEDS: Bupivacaine 0.5%/EPINEPHrine 1:200,000 50 ML MDV ONE (11:47)
[2024-06-06] MEDS ORDERED: Ketorolac 30 MG/ML SDV ONE (11:59)
[2024-06-06] MEDS: Acetaminophen 325 MG Tab PO PRN (13:53)
[2024-06-06 14:39] VITALS: BP 148/80; PULSE 90
== END 2024-06-06 15:12 | disposition home or self-care (01) ==
LOC: JP.ED 15:49 → JP.MS 17:40
PROVIDERS: ADMIT Registered Nurse; ATTEND Surgery
DX: K35.30 Acute appendicitis with localized peritonitis, without perforation or gangrene (principal); Z88.0 Allergy status to penicillin; Z88.1 Allergy status to other antibiotic agents; Z91.018 Allergy to other foods; Z91.09 Other allergy status, other than to drugs and biological substances; Z79.899 Other long term (current) drug therapy; Z79.84 Long term (current) use of oral hypoglycemic drugs
CPT/HCPCS: 36415; 44970; 74177; 80048; 80053; 81003; 83605; 85025; 85027; 86140; 87040; 88304; 96365; 99285; A9270; G0378; J0171; J0330; J1100; J1335; J1596; J1885; J2405; J2704; J2710; J2795; J3010; J3490; J7030; Q9967; 00840-QZ; 99223